=== PATIENT | female | born 1965 | race Caucasian/White ===

== ENCOUNTER 2016-04-16 12:01 | Emergency (ER) | payer BC ==
[2016-04-16 13:29] VITALS: BP 133/85
--- NOTE | 2016-04-16 14:01 | UC ---
Ear Complaint HPI - HPI Summary HPI Summary: Dull L ear pain, worse at night x 7-8 days. For the last couple days has been having worsening bouts of dizziness, especially with head movement or position change. Had nausea last night, no vomiting. Denies nasal congestion, cough, fever, or hx of ear surgery. Has had AOM as an adult, last time years ago. - History of Current Complaint Chief Complaint: UCEar Stated Complaint: EAR PAIN Time Seen by Provider: 04/16/16 13:29 Hx Obtained From: Patient Hx Last Menstrual Period: hysterectomy ?: No Onset/Duration: Gradual Onset, Lasting Days Severity Initially: Mild Severity Currently: Mild Alleviating Factors: Nothing Associated Signs/Symptoms: Negative: Discharge, Hearing Loss, Foreign Body Sensation, URI Symptoms - Allergies/Home Medications Allergies/Adverse Reactions: Allergies Allergy/AdvReac Type Severity Reaction Status Date / Time No Known Allergies Allergy Verified 04/16/16 13:29 Home Medications: Home Medications Simvastatin [Zocor 5 MG-] 10 mg PO DAILY 04/16/16 [History Confirmed 04/16/16] PMH/Surg Hx/FS Hx/Imm Hx Previously Healthy: Yes Cancer History Of: Denies: Breast Cancer - Surgical History Surgical History: Yes Surgery Procedure, Year, and Place: hysterectmy - Family History Known Family History: Positive: Other - vertigo in aunts - Social History Alcohol Use: None Substance Use Type: None Smoking Status (MU): Never Smoked Tobacco Review of Systems Constitutional: Negative Skin: Negative Eyes: Negative ENT: Ear Ache Respiratory: Negative Cardiovascular: Negative Gastrointestinal: Negative Genitourinary: Negative Motor: Negative Neurovascular: Negative Musculoskeletal: Negative Neurological: Other - dizziness Psychological: Negative All Other Systems Reviewed And Are Negative: Yes Physical Exam Triage Information Reviewed: Yes Appearance: Well-Appearing, No Pain Distress, Well-Nourished Vital Signs: Initial Vital Signs Temp 97.6 F 04/16/16 13:24 Pulse 68 04/16/16 13:24 Resp 16 04/16/16 13:24 BP 133/85 04/16/16 13:24 Pulse Ox 97 04/16/16 13:24 Vital Signs Reviewed: Yes Eye Exam: Normal, Other - EOM-I Eyes: Positive: Conjunctiva Clear ENT Exam: Normal ENT: Positive: Normal ENT inspection, Hearing grossly normal, Pharynx normal, TMs normal. Negative: TM bulging, TM dull, TM red, Tonsillar swelling, Tonsillar exudate Dental Exam: Normal Neck exam: Normal Neck: Positive: Supple, Nontender, No Lymphadenopathy Respiratory Exam: Normal Respiratory: Positive: Chest non-tender, Lungs clear, Normal breath sounds, No respiratory distress, No accessory muscle use Cardiovascular Exam: Normal Cardiovascular: Positive: RRR, No Murmur Musculoskeletal Exam: Normal Musculoskeletal: Positive: Strength Intact, ROM Intact, No Edema Neurological Exam: Normal, Other - DTRs 2+ bilat, Rowdy intact, CN II-XII intact , rhomberg negative Neurological: Positive: Alert Psychological Exam: Normal Skin Exam: Normal Ear Complaint Course/Dx - Differential Dx/Diagnosis Provider Diagnoses: benign paroxysmal positional vertigo. L otalgia Discharge - Discharge Plan Condition: Stable Disposition: HOME Prescriptions: Meclizine HCl [Meclizine 25] 25 mg PO TID PRN #20 tab PRN Reason: Vertigo Patient Education Materials: Benign Paroxysmal Positional Vertigo (ED) Referrals: Mitzi Rankin MD [Primary Care Provider] - 5 Days Additional Instructions: I recommend you look for online resources about the [place]-Hallpike maneuver. It is a series of head and body positions that can help dislodge any bits of debris in the balance organs in your ear. You can try this (several times, if you wish) at home. The meclizine may help with your symptoms, though it won't treat the cause if you have something in your semicircular canals. If you do not have resolution by next week, please see your primary care provider.
== END 2016-04-16 14:06 | disposition home or self-care (01) ==
LOC: UCEAST 12:01
DX: H81.10 Benign paroxysmal vertigo, unspecified ear (principal); H92.02 Otalgia, left ear
CPT/HCPCS: 99212; G0463

== ENCOUNTER 2019-06-02 15:40 | Emergency (ER) | payer BC ==
[2019-06-02 18:25] VITALS: BP 137/70
--- NOTE | 2019-06-02 18:48 | ED ---
Lower Extremity - HPI Summary HPI Summary: Patient is a 54-year-old otherwise healthy female presenting to the ED by EMS from [facility] [employer]. Patient states she was running the [employer] race, was going through the [place] hurdles and fell, landing on her foot. Denies any inversion/eversion, but cannot recall. Immediate swelling and deformity per patient. No pain to the upper leg, knee or hip. Denies other injuries or hitting her head. She was wrapped by [facility] medical staff in splint and sent to ED. On arrival, patient endorses pain at a 2/10, states she would not like any stronger pain medications. 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 - History of Current Complaint Chief Complaint: EDExtremityLower Stated Complaint: RIGHT LEG INJURY PER PT Time Seen by Provider: 06/02/19 16:00 Hx Obtained From: Patient Hx Last Menstrual Period: hysterectomy Onset of Pain: Immediate Onset/Duration: Minutes Severity Initially: Moderate Severity Currently: Mild Pain Intensity: 4 Pain Scale Used: 0-10 Numeric Timing: Constant Location: Is Discrete @ - right ankle Character Of Pain: Aching Associated Signs And Symptoms: Positive: Swelling, Bruising. Negative: Redness , Fever, Weakness, Dizziness Aggravating Factor(s): Standing, Ambulation Alleviating Factor(s): Rest Able to Bear Weight: No - Risk Factors Gout Risk Factors: Negative DVT Risk Factors: Negative Septic Arthritis Risk Factor: Negative - Allergies/Home Medications Allergies/Adverse Reactions: Allergies Allergy/AdvReac Type Severity Reaction Status Date / Time No Known Allergies Allergy Verified 06/02/19 15:46 PMH/Surg Hx/FS Hx/Imm Hx Previously Healthy: Yes - Cancer History Hx Chemotherapy: No Hx Radiation Therapy: Yes - Surgical History Surgery Procedure, Year, and Place: hysterectmy - Immunization History Hx Pertussis Vaccination: No Immunizations Up to Date: Yes Infectious Disease History: No Infectious Disease History: Denies: Traveled Outside the [place] in Last 30 Days - Family History Known Family History: Positive: Other - vertigo in aunts - Social History Occupation: Employed Full-time Lives: With Family Alcohol Use: Occasionally Alcohol Amount: 1 every 2 weeks Hx Substance Use: No Substance Use Type: Reports: None Smoking Status (MU): Never Smoked Tobacco Have You Smoked in the Last Year: No Review of Systems Negative: Fever, Chills, Fatigue, Skin Diaphoresis Negative: Palpitations, Chest Pain Negative: Shortness Of Breath, Cough Negative: Abdominal Pain, Vomiting, Diarrhea Positive: Arthralgia - right ankle with swelling and ecchymosis Skin: Negative Neurological/Mental Status: Negative All Other Systems Reviewed And Are Negative: Yes Physical Exam Triage Information Reviewed: Yes Vital Signs On Initial Exam: Initial Vitals Temp Pulse Resp BP Pulse Ox 97.1 F 81 16 154/98 98 06/02/19 15:42 06/02/19 15:42 06/02/19 15:42 06/02/19 15:42 06/02/19 15:42 Vital Signs Reviewed: Yes Appearance: Positive: Well-Appearing, Well-Nourished Skin: Positive: Warm, Skin Color Reflects Adequate Perfusion Head/Face: Positive: Normal Head/Face Inspection Eyes: Positive: EOMI, NICOLLE, Conjunctiva Clear Neck: Positive: Supple, No Lymphadenopathy Respiratory/Lung Sounds: Positive: Clear to Auscultation, Breath Sounds Present Cardiovascular: Positive: RRR, Pulses are Symmetrical in both Upper and Lower Extremities Musculoskeletal: Positive: Pain @ - right ankle pain with swelling Neurological: Positive: Speech Normal Psychiatric: Positive: Normal, Affect/Mood Appropriate Procedures - Sedation Patient Received Moderate/Deep Sedation with Procedure: No Diagnostics - Vital Signs Vital Signs Temp Pulse Resp BP Pulse Ox 06/02/19 18:24 98.7 F 68 16 137/70 96 06/02/19 15:42 97.1 F 81 16 154/98 98 - Laboratory Lab Statement: Any lab studies that have been ordered have been reviewed, and results considered in the medical decision making process. Lower Extremity Course/Dx - Course Course Of Treatment: arrival into the ED, the patient appears well. She does not be in any pain distress. Right ankle with significant swelling bilaterally with ecchymosis. Pulses +2 to the posterior tibial and pedal. No pain to the lower ext, knee or hip. Xray obtained which is evident for a trimalleolar fx without significant displacement, read by NELIDA Antonio in ED. Discussed with Dr. Eugene. Will f/u in clinic early next week. Plaster posterior with sugar tong placed. Patient tolerated well. Crutches given for ambulation. - Diagnoses Differential Diagnosis/HQI/PQRI: Positive: Fracture (Closed) Provider Diagnoses: Trimalleolar fracture of right ankle - Physician Notifications Discussed Care Of Patient With: Carson Eugene Discharge ED - Sign-Out/Discharge Documenting (check all that apply): Patient Departure - Discharge Plan Condition: Stable Disposition: HOME Patient Education Materials: Ankle Fracture (ED) Referrals: Calin Bee MD [Medical Doctor] - Mitzi Rankin MD [Primary Care Provider] - Additional Instructions: Follow up with Dr. Alvarado's office Ibuprofen 600mg three times daily Elevate above heart as much as possible Non weight bearing Call Tuesday to make an appt - Billing Disposition and Condition Condition: STABLE Disposition: Home
== END 2019-06-02 18:24 | disposition home or self-care (01) ==
LOC: ED 15:40
DX: S82.854A Nondisplaced trimalleolar fracture of right lower leg, initial encounter for closed fracture (principal); W18.30XA Fall on same level, unspecified, initial encounter; Y93.02 Activity, running; Y92.39 Other specified sports and athletic area as the place of occurrence of the external cause
CPT/HCPCS: 99282

== ENCOUNTER 2019-06-06 10:29 | Day surgery (SDC) | payer BC ==
[~2019-06-06 10:29] MED LIST: Acetaminophen TAB* 325 MG PO ONE; Buffered Lidocaine 1% SYRIN* 1 ML/SYRINGE INTRADERM ONE; Lactated Ringers 1000 ML Bag* 1,000 ML IV SCH; celeCOXIB CAP* 200 MG PO ONE
[2019-06-06] MEDS ORDERED: ceFAZolin 2 GM PREMIX in ORs 2 GM/50 ML BAG ONE (11:32)
[2019-06-06] MEDS ORDERED: Buffered Lidocaine 1% SYRIN* 1 ML/SYRINGE INTRADERM ONE (11:32)
[2019-06-06] MEDS ORDERED: Acetaminophen TAB* 325 MG ONE (11:32)
[2019-06-06] MEDS ORDERED: celeCOXIB CAP* 200 MG ONE (11:32)
[2019-06-06] MEDS ORDERED: Bupivacaine 0.5%* 50 ML MDV VIAL ONE (11:54)
[2019-06-06] MEDS ORDERED: fentaNYL* 50 MCG/ML 2 ML VIAL (100 MCG VIAL) ONE ×2 (12:04→14:22)
[2019-06-06] MEDS ORDERED: Midazolam* 1 MG/ML 2 ML VIAL (2 MG) ONE (12:04)
[2019-06-06] MEDS ORDERED: Bupivacaine 0.5% SDV PF* 30ML VIAL ONE (12:06)
[2019-06-06] MEDS ORDERED: Ondansetron INJ* 2 MG/ML VIAL ONE (12:59)
[2019-06-06] MEDS ORDERED: Propofol* 10 MG/ML 20 ML BTL ONE (12:59)
[2019-06-06] MEDS ORDERED: Dexamethasone IV* 4 MG/ML 1 ML (4 MG) ONE (12:59)
[2019-06-06] MEDS ORDERED: Lidocaine 2% PF * 5 ML VIAL ONE (12:59)
--- NOTE | 2019-06-06 15:16 | OP ---
Operative Report - Blank - Operative Report Date of Operation: 06/06/19 Note: PATIENT: Eveline Landdcsol DATE OF : 1965 DATE OF SURGERY: 06/06/2019 SURGEON: Calin Bee MD POULTRY BARN MANAGER: NELIDA Valdes, whos assistance was necessary for positioning, retraction, help with instrumentation, and closure. ANESTHESIOLOGIST: Dr. Asencio PREOPERATIVE DIAGNOSIS: Right trimalleolar ankle fracture POSTOPERATIVE DIAGNOSIS: Right trimalleolar ankle fracture OPERATION: 1. Right trimalleolar ankle fracture open reduction and internal fixation 2. Stress views performed by surgeon utilizing fluoroscopy under anesthesia. ANESTHESIA: General + block IMPLANTS: Arthrex ankle fracture set plate and screws TOURNIQUET TIME: Less than 2 hours with a well-padded thigh tourniquet at 250mmHg SPECIMENS: none ESTIMATED BLOOD LOSS: minimal COMPLICATIONS: none STATUS: Stable from the operating room to the recovery room and then home. INDICATIONS FOR PROCEDURE: Eveline sustained the above injury when she fell off [employer] at a [employer] race. Both operative and non operative treatment alternatives were reviewed. Further, the nature and risks of surgery were reviewed in careful detail, in the office as well as the pre-operative holding area. Our discussions regarding the risks of surgery included, but were not limited to, infection, wound problems, nerve injury, neuroma, RSD, persistent symptoms, blood clot, nonunion , malunion, post-traumatic arthritis, hardware failure, failure of the surgery, and even the remote chance of catastrophic complication. DESCRIPTION OF PROCEDURE: The patient was seen in the preoperative holding unit and informed written consent was obtained. The appropriate extremity was marked. The patient was then brought to the operating room and carefully positioned on the operating room table. Anesthesia was induced. All bony prominences were padded with great care. A well-padded thigh tourniquet was placed. A chlorhexidine based pre- scrub was performed followed by a chloraprep prep and drape in standard sterile fashion. A surgical safety pause was then conducted in which we confirmed the appropriate patient, extremity, planned procedure, availability of equipment, indication and administration of prophylactic antibiotics, and DVT prophylaxis in the form of a compression boot on the non-surgical extremity. I began with Esmarch exsanguination of the limb and inflated the tourniquet. I then utilized a longitudinal posterolaterally based incision at the ankle. Great care was taken to protect the superficial peroneal and sural nerves, which were not visualized within the field of view. I dissected down through the soft tissue layers to expose the distal fibula and SPR. I then exposed the distal fibula fractures. There was significant comminution. Fracture hematoma was removed. I gapped open the main fracture plane to expose the posterior malleolus fracture. The incarcerated fragments were then freed and tamped back down to the ankle joint. I then gained a reduction of the main distal fibular fracture plane utilizing a pointed reduction clamp and then held this provisionally with K-wires. I placed an anatomic plate laterally and then confirmed the reduction and the position of the plate fluoroscopically. I placed screws to hold the plate to the bone. I then used 3.0 mm cortical screws to fixate an independent fragment anteriorly and independent fragment posteriorly. The provisional fixation was removed and then I again confirmed fluoroscopically the appropriate position of the plate and screw lengths. I then found the plane between the peroneals and flexor hallucis longus and dissected into this plane. I exposed the posterior malleolus. I reduced the fracture and this was held provisionally with K wires. I then placed a 4.0 mm cannulated screw with washer. The provisional K wires were removed and the fracture remained well reduced. I then made an approximately 4cm incision over the medial malleolus. The fracture was exposed and hematoma was removed. Reduction of the medial malleolar fracture was obtained with a pointed reduction clamp. I placed guidewires for 4.0 mm cannulated screws. I confirmed the position of the guidewires fluoroscopically. I then overdrilled one wire and placed a partially threaded 4.0 mm cannulated screw. I then removed the guidewires and obtained fluoroscopic images. At this point, I performed a stress fluoroscopic examination. I utilized a Cotton test, as well as an external rotation stress test, to evaluate the distal tib-fib syndesmosis. There was no instability appreciated through the syndesmosis. At this point, we irrigated copiously and then closed in layers meticulously utilizing 0 Vicryl, 3-0 Monocryl and odalis for the skin. A sterile dressing was then applied followed by a splint with the ankle in a neutral position. The patient was then awakened from anesthesia and transferred to the recovery room in stable condition. There were no complications. All needle and sponge counts were correct at the end of the case. ATTESTATION: I attest I was present and scrubbed and performed the critical portions of the procedure myself. POSTOPERATIVE PLAN: The postop plan is for [id number] for an anticipated duration of 6 weeks. Follow-up will be in 2 weeks. At that time we will likely transition into a [id number] cast.
[2019-06-06 16:06] VITALS: BP 141/78
== END 2019-06-06 16:14 | disposition home or self-care (01) ==
LOC: OR 10:29
PROVIDERS: ATTEND Orthopaedic Surgery
DX: S82.851A Displaced trimalleolar fracture of right lower leg, initial encounter for closed fracture (principal); M25.571 Pain in right ankle and joints of right foot; W17.89XA Other fall from one level to another, initial encounter; Y93.79 Activity, other specified sports and athletics; Y92.89 Other specified places as the place of occurrence of the external cause; Z85.3 Personal history of malignant neoplasm of breast
CPT/HCPCS: 76000; A9270-GY; C1713; C1776; J0690; J1100; J2250; J2405; J2704; J3010; J3490